=== PATIENT | female | born 1995 | race Two or more races ===

== ENCOUNTER → 2016-09-16 | Outpatient (REF) | payer OTHER | LOC: M SFHCLERA 18:28 | PROVIDERS: ATTEND Physician Assistant | DX: J02.9 Acute pharyngitis, unspecified (principal) ==

== ENCOUNTER → 2024-09-16 | Outpatient (CLI) | payer OTHER | LOC: M RAD 07:49 | PROVIDERS: ATTEND Otolaryngology | DX: J32.8 Other chronic sinusitis (principal); J33.8 Other polyp of sinus; J34.2 Deviated nasal septum ==

== ENCOUNTER 2024-12-10 09:55 | Day surgery (SDC) | payer OTHER ==
[~2024-12-10] VITALS: Ht 162.6 cm; Wt 75.2 kg
[2024-12-10] MEDS ORDERED: LR 1,000 ML IV SCH ×2 (10:30→14:10)
[2024-12-10] MEDS ORDERED: fentaNYL 100 MCG/2 ML INJECTION As Ordered ONE (11:38)
[2024-12-10] MEDS ORDERED: LIDOCAINE 2% 100MG/5ML SDV (FOR ANES.) As Ordered ONE (11:38)
[2024-12-10] MEDS ORDERED: SUGAMMADEX SODIUM 500 MG/5 ML VIAL (BRIDION) As Ordered ONE (11:38)
[2024-12-10] MEDS ORDERED: propofoL 200 MG/20 ML VIAL As Ordered ONE (11:38)
[2024-12-10] MEDS ORDERED: ONDANSETRON 4MG 2ML VIAL As Ordered ONE (11:38)
[2024-12-10] MEDS ORDERED: MIDAZOLAM INJ 2MG/2ML VIAL As Ordered ONE (11:38)
[2024-12-10] MEDS ORDERED: ROCURONIUM BROMIDE 50MG/5ML VIAL As Ordered ONE (12:03)
[2024-12-10] MEDS: COCAINE 4% 4ML NASAL SOLUTION BTL As Ordered ONE (12:13)
[2024-12-10] MEDS: OXYMETAZOLINE 0.05% NASAL SPRAY As Ordered ONE (12:13)
[2024-12-10] MEDS ORDERED: HYDROmorphone HCL 2MG/ML 1ML VIAL As Ordered ONE (12:56)
[2024-12-10] MEDS ORDERED: ACETAMINOPHEN 1000MG/100ML IV BAG As Ordered ONE (12:57)
[2024-12-10] MEDS ORDERED: ePHEDrine SULFATE 25 MG/5 ML(5MG/ML) SYRINGE As Ordered ONE (13:23)
[2024-12-10] MEDS ORDERED: ONDANSETRON 4MG 2ML VIAL IV PRN (13:45)
[2024-12-10] MEDS: LIDOCAINE W/EPINEPHRINE 1% 20ML VIAL As Ordered ONE (13:45)
[2024-12-10] MEDS ORDERED: MORPHINE 2 MG/ML 1ML VIAL IV PRN (13:45)
[2024-12-10] MEDS ORDERED: ANEXSIA, NORCO 7.5MG/325MG TABLET(HYDROCODONE/APAP) PO PRN (14:10)
[2024-12-10] MEDS: fentaNYL 100 MCG/2 ML INJECTION IV PRN (14:23)
[2024-12-10] MEDS: oxyCODONE 5MG TAB PO PRN (14:48)
[2024-12-10 15:40] VITALS: BP 126/81; TEMP 97.2; O2SAT 100
== END 2024-12-10 16:11 | disposition home or self-care (01) ==
LOC: M SDC 09:55
PROVIDERS: ATTEND Otolaryngology
DX: J34.2 Deviated nasal septum (principal); J34.3 Hypertrophy of nasal turbinates; J45.909 Unspecified asthma, uncomplicated; K21.9 Gastro-esophageal reflux disease without esophagitis; Z87.19 Personal history of other diseases of the digestive system; Z91.040 Latex allergy status
CPT/HCPCS: 30140; 30520; 81025; C9143; J0131; J1100; J1171; J2250; J2405; J3010